=== PATIENT | male | born 1985 | race Hispanic/Latino ===

== ENCOUNTER 2021-10-28 05:33 | Day surgery (SDC) | payer BC ==
[2021-10-27 13:23] LABS: BASOPHILS % (AUTO) 0.6 % (0.0-5.0); EOSINOPHILS % (AUTO) 1.2 % (0.0-8.0); HEMATOCRIT 47.3 % (42-54); LYMPHOCYTES % (AUTO) 32.3 % (21.0-51.0); MEAN CORPUSCULAR HEMOGLOBIN 27.8 pg (27.0-33.0); MEAN CORPUSCULAR VOLUME 84.3 fL (79-99); MONOCYTES % (AUTO) 5.9 % (3.0-13.0); NEUTROPHILS % (AUTO) 59.1 % (40.0-77.0); PLATELET COUNT (AUTO) 318 K/uL (130-400); RED BLOOD CELL COUNT(AUTO) 5.61 MIL/uL (4.50-6.20); WHITE BLOOD COUNT (AUTO) 10.4 K/uL (4.8-10.8)
[2021-10-27 13:33] LABS: CREATININE 0.9 mg/dL (0.5-1.5); POTASSIUM 3.8 mmol/L (3.5-5.1)
[2021-10-27 13:35] LABS: INR 1.02 (0.85-1.15); PROTHROMBIN TIME 11.1 SEC (9.6-11.6)
[2021-10-27 13:37] LABS: PARTIAL THROMBOPLASTIN TIME 28.4 SEC (26.3-35.5)
[2021-10-27 15:46] VITALS: BP 156/93
[2021-10-28] VITALS (15 sets, daily range): BP systolic 116–154; BP diastolic 72–101
[~2021-10-28] VITALS: Ht 182.9 cm; Wt 121.9 kg
[2021-10-28] MEDS ORDERED: CEFAZOLIN SODIUM 1 GM VIAL ONE (06:11)
[2021-10-28] MEDS ORDERED: LACTATED RINGERS 1000ML 1,000 ML IV ONE (06:11)
[2021-10-28] MEDS ORDERED: FAMOTIDINE 20MG VIAL IV ONE (06:33)
[2021-10-28] MEDS ORDERED: HYDROMORPHONE 1 MG INJ ONE (06:33)
[2021-10-28] MEDS ORDERED: MIDAZOLAM HCL 1 MG/ML 2ML VIAL ONE (06:37)
[2021-10-28] MEDS ORDERED: ROCURONIUM 10MG/1ML SYR 10 MG/ML ML ONE (06:37)
[2021-10-28] MEDS ORDERED: PROPOFOL 10 MG/ML 20ML VIAL IV ONE (06:37)
[2021-10-28] MEDS ORDERED: GLYCOPYRROLATE 1 MG/5 ML SYRINGE ONE (06:37)
[2021-10-28] MEDS ORDERED: FENTANYL CITRATE PF 50 MCG/1 ML 5ML AMP IV ONE (06:38)
[2021-10-28] MEDS ORDERED: LIDOCAINE PF 100MG/5ML (2%) SYRINGE 5ML ONE (06:38)
[2021-10-28] MEDS ORDERED: LIDOCAINE 1%-EPI 1:100,000 20 ML VIAL IJ ONE (06:39)
[2021-10-28] MEDS ORDERED: ONDANSETRON 4MG INJ ONE (07:26)
[2021-10-28] MEDS ORDERED: CEFAZOLIN SODIUM 1 GM VIAL IVP ONE (08:00)
[2021-10-28] MEDS ORDERED: KETOROLAC 30MG VIAL (30MG/ML) ONE (10:04)
== END 2021-10-28 11:40 | disposition home or self-care (01) ==
LOC: DAH 05:33
PROVIDERS: ATTEND Otolaryngology
DX: R59.1 Generalized enlarged lymph nodes (principal); K21.9 Gastro-esophageal reflux disease without esophagitis; Z79.01 Long term (current) use of anticoagulants; Z79.899 Other long term (current) drug therapy
CPT/HCPCS: 36415; 38510; 80048; 85025; 85610; 85730; 87635; A4215 ×2; A4221; A4222; A4223; A4600; A4606; A4649 ×2; A4663; A4930; A6260; C9803; J0690; J1170; J1885; J2001; J2250; J2405; J2704; J3010; J3490 ×3; J7120 ×2